=== PATIENT | male | born 1995 | race Caucasian/White ===

== ENCOUNTER 2017-03-26 23:26 | Emergency (ER) | payer SELFPAY ==
[~2017-03-26] VITALS: Ht 190.5 cm; Wt 93.0 kg
[2017-03-26 23:31] VITALS: BP 141/69; PULSE 110; RESP 18; TEMP 98.3; O2SAT 100
[2017-03-26 23:40] VITALS: BP 141/69; PULSE 110; RESP 18; TEMP 98.3; O2SAT 100
--- NOTE | 2017-03-26 23:45 | PD ---
HPI Chief Complaint: Injury Time Seen by Provider: 23:42 Travel History International Travel<30 days: No Contact w/Intl Traveler<30days: No Traveled to known affect area: No History of Present Illness HPI 21-year-old male presents to the emergency department by private transportation the care of his mother for 2 weeks of ankle pain and swelling after a twisting injury on a trampoline. Patient states initially there was a lot of swelling and pain the pain has continued to decrease but the range of motion remains limited and patient continues to use crutches to assist with ambulation. Patient was not initially evaluated medically at the time of the injury. Due to ongoing symptoms was encouraged to come to the emergency room for evaluation by his parent. Distally extremity is neurovascular tendon intact. [facility] Past Medical History Narrative Medical Negative past medical grossly negative surgical history no tobacco use; nursing notes reviewed Diminished Hearing: No Social History Alcohol Use: No Tobacco Use: No Substance Use: No Allergies-Medications (Allergen,Severity, Reaction): Coded Allergies: No Known Allergies (Unverified , 03/26/17) Reported Meds & Prescriptions Reported Meds & Active Scripts Active No Active Prescriptions or Reported Medications Review of Systems Except as stated in HPI: all other systems reviewed are Neg Physical Exam Narrative GENERAL: Well-developed well-nourished male in acute distress no respiratory distress SKIN: Warm and dry. MUSCULOSKELETAL: No cyanosis, left ankle edema with various aged ecchymosis to the ankle and foot with pedal edema; no obvious deformity; dorsalis pedis pulse 2+ to palpation; capillary refill brisk and less than 2 seconds per digit; patient is able to demonstrate range of motion of the left ankle although and range of motion is limited secondary to soft tissue swelling and pain. No point tenderness. Data Data Last Documented VS Vital Signs Date Time Temp Pulse Resp B/P Pulse Ox O2 Delivery O2 Flow Rate FiO2 03/26/17 23:43 110 18 100 Room Air 03/26/17 23:40 98.3 141/69 Orders Ankle, Complete ([id number]) (03/26/17 ) [facility] Medical Decision Making Medical Screen Exam Complete: Yes Emergency Medical Condition: Yes Medical Record Reviewed: Yes Interpretation(s) left ankle xr: FINDINGS: 3 views of the left ankle. Bone alignment within normal limits. No evidence of fracture. Ankle mortise intact. CONCLUSION: No evidence of fracture. Augusto Thorpe MD on March 27, 2017 at 0:09 Board Certified Radiologist. This report was verified electronically. Differential Diagnosis Strain sprain subluxation dislocation avulsion fracture fracture Narrative Course Imaging studies ordered Patient informed with mother at bedside no acute bony injury; patient is stable for outpatient management; patient has ankle brace and crutches therefore not administered additional Nathan wrap or crutches. Patient is encouraged to follow- up with orthopedist. Diagnosis Primary Impression: Left ankle sprain Qualified Code: S93.402A - Sprain of left ankle, unspecified ligament, initial encounter Referrals: Orthopedist call for appointment Patient Instructions: General Instructions Departure Forms: Tests/Procedures, Work Release Special Instructions: modified duty x 5 days no weight bearing left ankle foot --use crutches Additional Instructions: Elevate ankle use crutches to assist ambulation No weightbearing on left foot and cold 5 days Follow-up with primary care provider/orthopedist call office for appointment Return to the emergency department for any concerns or change in condition Take as needed as directed acetaminophen and/or ibuprofen for pain Med/Other Pt SpecificInfo: No Meds Exist/No RX given Scripts No Active Prescriptions or Reported Meds Disposition: 01 DISCHARGE HOME Condition: Stable Viky Wylie MD Mar 26, 2017 23:45
--- NOTE | 2017-03-27 00:11 | RADRPT ---
EXAM DATE/TIME: 03/26/2017 23:49 [facility] COMPARISON: No previous studies available for comparison. INDICATIONS : Left ankle pain for 2 weeks post fall MEDICAL HISTORY : None. SURGICAL HISTORY : None. ENCOUNTER: Initial ACUITY: 2 weeks PAIN SCORE: 3/10 LOCATION: Left anterior ankle FINDINGS: 3 views of the left ankle. Bone alignment within normal limits. No evidence of fracture. Ankle morti se intact. CONCLUSION: No evidence of fracture. Augusto Thorpe MD on March 27, 2017 at 0:09 Board Certified Radiologist. This report was verified electronically.
[2017-03-27 01:01] VITALS: BP 136/70; PULSE 88; RESP 18; O2SAT 99
== END 2017-03-27 01:03 | disposition home or self-care (01) ==
LOC: PHED 23:26
DX: S93.402A Sprain of unspecified ligament of left ankle, initial encounter (principal); X50.1XXA Overexertion from prolonged static or awkward postures, initial encounter; Y93.44 Activity, trampolining
CPT/HCPCS: 73610; 99283